=== PATIENT | female | born 1985 | race Caucasian/White ===

== ENCOUNTER → 2022-08-23 09:26 | Outpatient (BNVA) | payer OTHER, SELFPAY | PROVIDERS: PCP Physician Assistant; Visit Provider Internal Medicine | DX: S61.111A Laceration without foreign body of right thumb with damage to nail, initial encounter (principal); S61.310A Laceration without foreign body of right index finger with damage to nail, initial encounter; S61.312A Laceration without foreign body of right middle finger with damage to nail, initial encounter; W31.9XXA Contact with unspecified machinery, initial encounter | CPT/HCPCS: 99203 ==

== ENCOUNTER → 2022-08-26 08:36 | Outpatient (BNVA) | payer OTHER, SELFPAY | PROVIDERS: PCP Physician Assistant; Visit Provider Internal Medicine | DX: S61.111A Laceration without foreign body of right thumb with damage to nail, initial encounter (principal); S61.310A Laceration without foreign body of right index finger with damage to nail, initial encounter; S61.312A Laceration without foreign body of right middle finger with damage to nail, initial encounter; W31.9XXA Contact with unspecified machinery, initial encounter | CPT/HCPCS: 99213 ==

== ENCOUNTER 2022-08-30 08:07 | Outpatient (RCR) | payer OTHER, SELFPAY | END 2022-09-28 12:00 | disposition home or self-care (01) | LOC: HO.WCC 08:07 | PROVIDERS: Referring Provider Internal Medicine; Visit Provider Physician Assistant | DX: S61.111D Laceration without foreign body of right thumb with damage to nail, subsequent encounter (principal); S61.210D Laceration without foreign body of right index finger without damage to nail, subsequent encounter; W31.89XD Contact with other specified machinery, subsequent encounter | CPT/HCPCS: 99212; 99213 ==

== ENCOUNTER → 2022-09-14 14:06 | Outpatient (BNVA) | payer OTHER, SELFPAY | PROVIDERS: PCP Physician Assistant; Visit Provider Internal Medicine | DX: M79.631 Pain in right forearm (principal); M25.531 Pain in right wrist | CPT/HCPCS: 99214 ==

== ENCOUNTER → 2022-09-24 13:38 | Outpatient (BNVA) | payer OTHER, SELFPAY | PROVIDERS: PCP Physician Assistant; Visit Provider Internal Medicine | DX: S61.111D Laceration without foreign body of right thumb with damage to nail, subsequent encounter (principal); S61.310D Laceration without foreign body of right index finger with damage to nail, subsequent encounter; S61.312D Laceration without foreign body of right middle finger with damage to nail, subsequent encounter; W31.9XXD Contact with unspecified machinery, subsequent encounter | CPT/HCPCS: 99213 ==

== ENCOUNTER → 2022-10-12 14:45 | Outpatient (BNVA) | payer OTHER, SELFPAY | PROVIDERS: PCP Physician Assistant; Visit Provider Internal Medicine | DX: S61.111D Laceration without foreign body of right thumb with damage to nail, subsequent encounter (principal); S61.310D Laceration without foreign body of right index finger with damage to nail, subsequent encounter; S61.312D Laceration without foreign body of right middle finger with damage to nail, subsequent encounter; W31.9XXD Contact with unspecified machinery, subsequent encounter | CPT/HCPCS: 99213 ==

== ENCOUNTER 2022-10-27 10:39 | Outpatient (REF) | payer OTHER, SELFPAY ==
--- NOTE | ~2022-10-27 | XR_ITS ---
EXAMINATION: XR hand RT min 3V CLINICAL INFORMATION: Pain COMPARISON: Hand radiographs 01/14/2014 TECHNIQUE: 3 views of the hand FINDINGS: No acute fracture or dislocation. Healed fracture of the fifth metacarpal diaphysis again seen. Joint spaces are maintained. Few punctate radiodense foreign bodies are noted in the soft tissues of the first digit adjacent to the middle phalanx which may reflect tiny retained foreign bodies. XR/XR hand RT min 3V IMPRESSION: Few punctate radiodense foreign bodies are noted in the soft tissues of the first digit adjacent to the middle phalanx which may reflect tiny retained foreign bodies, if any history of prior trauma. No acute osseous abnormality.
== END 2022-10-27 10:40 | disposition home or self-care (01) ==
LOC: HO.HOSX 10:39
PROVIDERS: Visit Provider Orthopaedic Surgery
DX: M79.641 Pain in right hand (principal); R20.0 Anesthesia of skin; R20.2 Paresthesia of skin
CPT/HCPCS: 73130; 99202

== ENCOUNTER → 2022-10-28 15:28 | Outpatient (BNVA) | payer OTHER, SELFPAY | PROVIDERS: PCP Physician Assistant; Visit Provider Internal Medicine | DX: S61.111D Laceration without foreign body of right thumb with damage to nail, subsequent encounter (principal); S61.310D Laceration without foreign body of right index finger with damage to nail, subsequent encounter; S61.312D Laceration without foreign body of right middle finger with damage to nail, subsequent encounter; W31.9XXD Contact with unspecified machinery, subsequent encounter | CPT/HCPCS: 99213 ==

== ENCOUNTER → 2023-01-04 13:53 | Outpatient (BNVA) | payer OTHER, SELFPAY | PROVIDERS: PCP Physician Assistant; Visit Provider Orthopaedic Surgery | DX: R20.0 Anesthesia of skin (principal); R20.2 Paresthesia of skin | CPT/HCPCS: 99212 ==

== ENCOUNTER 2023-01-05 15:00 | Outpatient (RCR) | payer OTHER, SELFPAY ==
--- NOTE | 2022-09-16 15:02 | MHC.OT.EP ---
[address] [phone] Occupational Therapy Plan of Care Date of Evaluation: 09/16/22 Diagnosis: Right thumb, index and middle finger laceration Numbness in right thumb and index finger Assessment: Pt. 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 As she was cleaning one of the machines, her right hand got caught, sustaining a crush/pull laceration injury to her right thumb, index, and middle fingers. The injury did not require sutures, presenting more as a burn. Pt. reports numbness in digits 1-3, significant hypersensitivity, and pain radiating from thumb to radial forearm. A 63.6% limitation is reported per the Quick DASH assessment. Pt. has been avoiding using thumb and index finger, and is relying on ulnar grasp. Pt. was educated in importance of daily AROM and desensitizing routine. She is currently on light duty at work. Kina would benefit from skilled OT services to address noted barriers and assist in return to [facility]. Frequency and Duration: The patient will be seen 2x/wk for 6 weeks Short Term Goals: Decrease finger and thumb pain to >3/10 IND with HEP and desensitizing routine Pt. will use right hand pincer grasp for self feeding Improve R gross grasp to 10# Fdc Goals: Pain free with BADL's/IADL's IND with progression of HEP Improve FMC to WFL's as evidenced by ability to complete FDT Gross grasp >25# Quick DASH <25% Treatment Plan: Therapeutic Exercise Therapeutic Activity Home Exercise Program Splinting Patient Education Desensitization/Sensory Re-ed ADL Training Ultrasound Electronically Signed By: Yolette Peterson MS OTR/L Please Sign and return to therapist. Thank you once again for your referral.
== END 2023-01-05 15:35 | disposition home or self-care (01) ==
LOC: HO.OT 15:00
PROVIDERS: Absent Provider Orthopaedic Surgery; Visit Provider Internal Medicine
DX: R20.0 Anesthesia of skin (principal); M79.641 Pain in right hand; S61.011D Laceration without foreign body of right thumb without damage to nail, subsequent encounter; S61.210D Laceration without foreign body of right index finger without damage to nail, subsequent encounter; S61.212D Laceration without foreign body of right middle finger without damage to nail, subsequent encounter
CPT/HCPCS: 97035; 97110; 97165; 97530

== ENCOUNTER 2025-03-12 20:21 | Emergency (ER) | payer OTHER, SELFPAY ==
--- NOTE | ~2025-03-12 | XR_ITS ---
CLINICAL HISTORY: fall, left ankle pain 3 view left ankle Comparison: None Findings: No acute fractures or dislocations. Moderate soft tissue edema laterally. No ankle effusion. No radiopaque foreign body. IMPRESSION: Moderate soft tissue edema. No evidence of fracture. This document has been electronically signed by: Davy Cook MD on 03/12/2025 20:54:51
[2025-03-12 20:25] VITALS: BP 127/76; PULSE 66; RESP 18; TEMP 36.9; O2SAT 100; BMI 21.8
--- NOTE | 2025-03-12 20:54 | PC.NURSE ---
Patient assisted to bathroom via wheelchair. Stand/pivot to toilet without issue. Xray obtained, results pending. Moved to [facility] [place] bed near Triage.
--- NOTE | 2025-03-12 20:59 | PC.NURSE ---
Assisted from toilet to wheelchair. Placed in [facility] [address] [place], xray pending. Awaiting ED provider evaluation & treatment.
[2025-03-12 22:14] VITALS: BP 109/57; PULSE 72; RESP 18; TEMP 37.1; O2SAT 100
--- NOTE | 2025-03-12 23:42 | ED_ITS ---
HPI - General Adult General Chief complaint: Extremity Injury, Lower Stated complaint: Fall Time Seen by Provider: 03/12/25 23:42 History of Present Illness ED Provider: Yoseph VOGT narrative: The patient is a generally healthy 40-year-old who was on no medications. She twisted her left ankle when she missed a step carrying a load of laundry up some stairs. This happened at around 4 PM. She has been having pain and swelling of the ankle and has been unable to bear weight because of the pain. She had no other injury. Related Data Home Medications ?Medication ?Instructions ?Recorded ?Confirmed ibuprofen 200 mg capsule 200 mg PO Q6H PRN 10/27/22 Previous Rx's ?Medication ?Instructions ?Recorded ibuprofen 400 mg tablet 400 mg PO Q6H PRN pain #14 tabs 03/13/25 Allergies Allergy/AdvReac Type Severity Reaction Status Date / Time No Known Allergies Allergy Verified 03/12/25 20:27 Review of Systems Review of Systems: Yes all other systems are reviewed and are negative [facility] Social History Social History Alcohol intake: never Patient Tobacco Use Status: Never used Tobacco Advance Directives: No Advance Directives Information Provided: No Patient : No Current occupational status: employed Current occupation: second time worker/ right hand dominant Physical Exam ED Vital Signs: Vital Signs - 24 hr 03/12/25 20:25 03/12/25 22:14 03/13/25 00:25 Temperature 98.5 F 98.7 F 98.3 F Pulse Rate 66 72 59 Respiratory Rate 18 18 18 Blood Pressure 127/76 109/57 L 108/71 Pulse Oximetry 100 100 98 Oxygen Delivery Method Room Air Room Air Room Air 03/13/25 01:10 Temperature 98.3 F Pulse Rate 59 Respiratory Rate 18 Blood Pressure 108/71 Pulse Oximetry 98 Oxygen Delivery Method Room Air BMI result Body Mass Index 21.8 Const Other: The patient has the appearance of an ordinarily healthy and athletic 40-year-old. She is awake, alert, pleasant, cooperative. HENMT Other: Face is symmetrical, mucous membranes moist Eyes General: appearance normal, both eyes and all related structures Neck Neck: Yes normal visual inspection Resp Effort & Inspection: normal respiratory effort Skin Other: The skin is intact. There is some soft tissue swelling over the lateral malleolus of the left ankle. Neuro Other: The patient is awake and alert with a normal mental status. She has normal sensation in the left foot. Extrem Other: There is swelling on the lateral side of the left ankle. Skin is intact. She is tender at the left lateral malleolus. The medial malleolus is nontender. She has a good dorsalis pedis pulse in the foot. Medications Administered Discontinued Medications Generic Name Dose Route Start Last Admin Trade Name Freq PRN Reason Stop Dose Admin Acetaminophen 975 mg 03/12/25 23:53 03/13/25 01:03 Acetaminophen 325 Mg Tablet PO 03/12/25 23:54 975 mg ONCE ONE Administration Ibuprofen 400 mg 03/12/25 23:53 03/13/25 01:03 Ibuprofen 400 Mg Tablet PO 03/12/25 23:54 400 mg ONCE ONE Administration Medical Decision Making Medical Decision Making [facility] Narrative: The patient is a very pleasant an ordinarily healthy 40-year-old who twisted her left ankle this afternoon. She presents because of pain with weight-bearing. She has an x-ray that shows soft tissue swelling over the lateral malleolus of the left ankle but no fracture. She was advised that she seems to have a sprain of the ankle. She was given a tall orthopedic boot and crutches. She was given a work note. Discharge Plan Discharge Clinical Impression: Left ankle sprain Patient Disposition: Home, Self-Care Instructions: Ankle Sprain (ED) Additional Instructions: Your x-ray does not show any fracture of your left ankle. You have a sprain of your left ankle. Please wear the orthopedic boot provided and use the crutches to keep weight off your ankle when you are up and moving around. I think you will need to take the next few days off work because you should not be standing with this injury. As much as you can over the next few days rest and stay off your feet and keep your left foot elevated. Use ibuprofen and acetaminophen as needed for pain. My hope is that you will be well enough by Tuesday to return to work. However even then you should try to stay off the ankle as much as you are able to. Please contact the orthopedic office for follow up. Return to the emergency room if significantly worse. Prescriptions: New ibuprofen 400 mg tablet 400 mg PO Q6H PRN (Reason: pain) Qty: 14 0RF No Action ibuprofen 200 mg capsule 200 mg PO Q6H PRN Referrals: [facility] [Provider Group] (ankle sprain) Stand Alone Forms: Work/School Release Interventions: ED Discharge Assessment Last Done: 03/13/25 01:10 Discharge Date/Time: 03/13/25 01:11 Print Language: [place]
[2025-03-13 00:25] VITALS: BP 108/71; PULSE 59; RESP 18; TEMP 36.8; O2SAT 98
[2025-03-13] MEDS: Acetaminophen 325 MG TABLET 975 MG PO (01:03)
[2025-03-13] MEDS: Ibuprofen 400 MG TABLET PO (01:03)
[2025-03-13 01:10] VITALS: BP 108/71; PULSE 59; RESP 18; TEMP 36.8; O2SAT 98
== END 2025-03-13 01:11 | disposition home or self-care (01) ==
PROVIDERS: Emergency Provider Emergency Medicine; PCP Physician Assistant
DX: S93.402A Sprain of unspecified ligament of left ankle, initial encounter (principal); X50.1XXA Overexertion from prolonged static or awkward postures, initial encounter; Y93.E2 Activity, laundry; Y92.018 Other place in single-family (private) house as the place of occurrence of the external cause; Y99.9 Unspecified external cause status
CPT/HCPCS: 73610; 99283; 99284

== ENCOUNTER → 2025-03-12 20:40 | Outpatient (BNV) | payer OTHER, SELFPAY | PROVIDERS: PCP Physician Assistant; Visit Provider Radiology Vascular & Interventional Radiology | DX: R60.0 Localized edema (principal) | CPT/HCPCS: 73610 ==